=== PATIENT | male | born 1965 | race Two or more races ===

== ENCOUNTER 2020-04-09 19:21 | Inpatient (IN) | payer MEDICARE, OTHER ==
[~2020-04-09] VITALS: Ht 188 cm; Wt 73.5 kg
[2020-04-09] MEDS ORDERED: Acetaminophen 500mg (ES) tab ORAL PRN (22:15)
--- NOTE | 2020-04-09 22:40 | NUR ---
NURSE NOTES: Patient arrived at unit around 1040 pm. via ambulance gurney. Patient is covid positive, and was tested back at [facility]. Patieint is alert and oriented x4,denies any SOB or current s/s of covid. per patient, he had a cough prior to and was tested. Patient is ambulatory with steady gait. denies any pain as of now. VSS and WNL. afebrile. Admitting orders obtained from DR Farmer. patient has a RU chest permacath used for hemodialysis. last hemodialysis was done today at 2130 04/09/20. Per patient he is only getting dialysis qMonday and Sunday. Otherwise, patient stable
[2020-04-09 22:45] VITALS: BP 110/64
--- NOTE | 2020-04-09 22:45 | NUR ---
NURSE NOTES: Patient reported to have taken already night medications prior to leaving
[2020-04-09 23:21] LABS: BASOPHILS % (AUTO) 0.7 % (0.0-2.0); EOSINOPHILS % (AUTO) 9.9 % (0.0-3.0); HEMOGLOBIN 10.8 G/DL (14.2-18.0); LYMPHOCYTES % (AUTO) 13.3 % (20.0-45.0); MEAN CORPUSCULAR VOLUME 88 FL (80-99); MONOCYTES % (AUTO) 11.4 % (1.0-10.0); NEUTROPHILS % (AUTO) 64.8 % (45.0-75.0); PLATELET COUNT 165 K/UL (150-450); RED BLOOD COUNT 3.85 M/UL (4.70-6.10); RED CELL DISTRIBUTION WIDTH 13.4 % (11.6-14.8); WHITE BLOOD COUNT 6.7 K/UL (4.8-10.8)
[2020-04-09 23:30] LABS: ALANINE AMINOTRANSFERASE 34 U/L (12-78); ALBUMIN 3.3 G/DL (3.4-5.0); ALBUMIN/GLOBULIN RATIO 0.7 (1.0-2.7); ALKALINE PHOSPHATASE 96 U/L (46-116); ANION GAP 9 mmol/L (5-15); ASPARTATE AMINO TRANSFERASE 26 U/L (15-37); BILIRUBIN,TOTAL 0.9 MG/DL (0.2-1.0); BLOOD UREA NITROGEN 76 mg/dL (7-18); CALCIUM 8.9 MG/DL (8.5-10.1); CARBON DIOXIDE 29 MMOL/L (21-32); CHLORIDE 104 MMOL/L (98-107); CREATININE 5.1 MG/DL (0.55-1.30); POTASSIUM 3.7 MMOL/L (3.5-5.1); SODIUM 142 MMOL/L (136-145)
[2020-04-09] MEDS: Atorvastatin 20mg tab ORAL SCH (23:30)
[2020-04-10] VITALS: BP 110/56
--- NOTE | 2020-04-10 | NUR ---
NURSE NOTES: MRSA, VRE, CRE swabs obtained . as per [facility] Protocol. IV site obtained on L hand, 24 gauge.
[2020-04-10 04:00] VITALS: BP 131/75
--- NOTE | 2020-04-10 07:45 | NUR ---
NURSE HAND-OFF: Important Events on Shift:[ADMISSION] Patient Status: [stable ] Diet: [reg] Pending Orders: [] Pending Results/Labs:[] Pending MD notification:[] Latest Vital Signs: Temperature 96.8 , Pulse 72 , B/P 131 /75 , Respiratory Rate 20 , O2 SAT 97 , , O2 Flow Rate . Vital Sign Comment: [] Latest Hernandes Fall Score: 35 Fall Risk: Medium Risk Safety Measures: Call light Within Reach, Bed Alarm , Side Rails Side Rails x2, Bed position Low and Locked. Fall Precautions: Patient Fall Education Report given to [CELESTINA REBOLLAR ].
--- NOTE | 2020-04-10 07:54 | NUR ---
NURSE NOTES: Received pt in bed, AAO x 4. RA. No c/o of pain/distress at this moment. IV on L hand 24g noted and R chest permacath noted. Side rails x2. Bed in the lowest and alarm on. Call light within reach. Will continue to monitor
[2020-04-10 08:00] VITALS: BP 106/68
--- NOTE | 2020-04-10 08:15 | History and Physical Report ---
DATE OF ADMISSION: 04/09/2020 CHIEF COMPLAINT: End-stage renal disease, shortness of breath. HISTORY OF PRESENT ILLNESS: This is a 54-year-old male. He has a history of heart transplant 13 years ago, was recently initiated on hemodialysis approximately two months ago. He recently tested positive for COVID-19 from halfway facility, was transferred to [facility]. Unfortunately, his old dialysis center would not take him back for hemodialysis because he was COVID positive and attempts [facility] were unsuccessful. The patient had worsening shortness of breath and edema. He is now admitted for hemodialysis. He denies any fevers or chills. He has had no cough. No chest pain. . No body aches. PAST MEDICAL HISTORY: As above. History of schizophrenia and hypertension. PAST SURGICAL HISTORY: As above. CURRENT MEDICATIONS: Reconciled and reviewed. ALLERGIES: None. FAMILY HISTORY: None. SOCIAL HISTORY: Negative for tobacco, ethanol, or drugs. REVIEW OF SYSTEMS: GENERAL: No fevers or chills. HEENT: No headaches or visual changes. CARDIOPULMONARY: No chest pain or . GASTROINTESTINAL: No nausea or vomiting. GENITOURINARY: No urgency or frequency. MUSCULOSKELETAL: No joint pain or swelling. NEUROLOGIC: No evidence of seizures. PHYSICAL EXAMINATION: VITAL SIGNS: Temperature 98, pulse 72, respirations 20, and blood pressure 131/75. GENERAL: The patient is well-developed, no apparent distress. HEART: Regular rate and rhythm. LUNGS: Clear. ABDOMEN: Soft, nontender, and nondistended. EXTREMITIES: Without clubbing, cyanosis, or edema. NEUROLOGIC: Motor strength is 5/5 bilaterally. SKIN: Without rashes. LABORATORY AND DIAGNOSTIC DATA: Labs showed a white count of 6, hemoglobin 10, hematocrit 34, platelets of 165. Sodium 142, creatinine was 5, BUN 76. ASSESSMENT: This is a pleasant 54-year-old male he has a history of heart transplant, hypertension, end-stage renal disease admitted for hemodialysis for renal failure, shortness of breath, and uremia. PLAN: Renal consultation for hemodialysis. Continue transplant medications. Cardiology followup regarding the patient's transplant medications. Continue psychiatric medications. Continue DVT and stress ulcer prophylaxis. Plan of care has been discussed with the patient's pattern scratcher and his non destructive evaluation manager. Sergio Farmer M.D. DR: Petra JOB#: [id number] CC:
[2020-04-10] MEDS ORDERED: Torsemide 10mg tab ORAL SCH (09:00)
[2020-04-10] MEDS: Imdur 30mg tab ORAL SCH (09:00)
[2020-04-10] MEDS ORDERED: Imdur 30mg tab ORAL SCH (09:00)
[2020-04-10] MEDS: Carvedilol 6.25mg Tab ORAL SCH ×2 (09:00→21:00)
[2020-04-10] MEDS ORDERED: Bumetanide 1mg tab ORAL SCH (09:00)
[2020-04-10] MEDS: Aspirin EC 81mg tab ORAL SCH (09:10)
--- NOTE | 2020-04-10 09:33 | Diagnostic Imaging Report ---
EXAM: XR Chest, 1 View CLINICAL HISTORY: COUGH TECHNIQUE: Frontal view of the chest. COMPARISON: No relevant prior studies available. FINDINGS/IMPRESSION: Dual lumen central venous catheter terminates in the distal superior cava and right atrium. Median sternotomy wires. Atelectasis within the right midlung field and left lung base. No pleural effusion or pneumothorax. The heart size is enlarged. Calcified aorta.
[2020-04-10] MEDS: Mycophenolate 250mg cap ORAL SCH ×2 (09:54→17:46)
--- NOTE | 2020-04-10 11:00 | Consultation ---
DATE OF CONSULTATION: 04/10/2020 NEPHROLOGY CONSULTATION CONSULTING PHYSICIAN: Compa Iraheta MD. REFERRING PHYSICIAN: Sergio Farmer MD. REASON FOR CONSULTATION: End-stage renal disease. HISTORY OF PRESENT ILLNESS: The patient had a heart transplant in 2006 and was started on dialysis a few months ago. He lives in a long term facility. Apparently not on this part of town but was recently transferred to a facility nearby due to a screening COVID-19 positive. He has been unable to get outpatient dialysis because of his recent move here and lack of data. He has had a mild cough. No shortness of breath. No chest pain. No leg edema. No fever or chills but because of his COVID-19 and inability to get dialysis, he was admitted. ALLERGIES: None known. PAST SURGICAL HISTORY: Heart transplant, AV fistula. HABITS: He is a nonsmoker and nondrinker. MEDICATIONS: Torsemide 100 mg b.i.d., lisinopril 10 mg daily, Protonix 40 mg daily., Senna b.i.d., , MOM p.r.n., Fleet enema p.r.n., Dulcolax suppository p.r.n., Prograf 2 mg one tablet b.i.d., aspirin 81 mg daily, Plavix 75 mg daily, prednisone 5 mg daily, PhosLo 667 mg t.i.d., Crestor 5 mg daily, carvedilol 3.125 mg b.i.d., hydralazine 25 mg three tablets every 8 hours, Imdur 60 mg daily, Zyprexa 5 mg daily. SYSTEM REVIEW: HEAD, EYES, EARS, NOSE, AND THROAT: Vision and hearing is good. ENDOCRINE: No diabetes or thyroid disease. PULMONARY: See history of present illness. There is not short of breath at this time. CARDIAC: History of heart transplant and hypertension. GASTROINTESTINAL: History of gastritis improved with medication. GENITOURINARY: No dysuria, hematuria. NEUROLOGIC: History of prior CVA with right-sided weakness, minimal residual. PHYSICAL EXAMINATION: GENERAL: The patient is alert, in no acute distress. VITAL SIGNS: BMI 21.1, temperature 97.9, pulse 104, respiratory rate 21, blood pressure 106/68. HEAD, EYES, EARS, NOSE, AND THROAT: Sclerae are nonicteric. Ocular motions intact in all directions. Oral mucosa moist. NECK: No adenopathy. LUNGS: Clear. HEART: Regular rhythm. No murmur. ABDOMEN: Soft without organomegaly. EXTREMITIES: No edema. There is an AV fistula. NEUROLOGIC: He is alert and responsive. He moves all extremities. Cranial nerves are intact. LABORATORY AND DIAGNOSTIC DATA: White count 6.7, hemoglobin 10.8, BUN 76, creatinine 5.1. Electrolytes normal. Glucose 109. Calcium 8.9. Chest x-ray, pending. IMPRESSION: 1. End-stage renal disease. 2. History of heart transplant. 3. History of COVID positive recent. 4. Inability get outpatient dialysis due to recent move to this area and lack of data. 5. History of cardiomyopathy and heart transplant. 6. History of schizophrenia. 7. History of prior CVA. PLAN: All orders reviewed for end-stage renal disease, dialysis is arranged. We will watch closely in view of his comorbidities. Compa Iraheta M.D. DR: Debora JOB#: [id number] CC:
[2020-04-10 12:00] VITALS: BP 118/73
[2020-04-10 16:00] VITALS: BP 119/79
[2020-04-10] MEDS ORDERED: CRESTOR10 M1 ORAL (16:32)
[2020-04-10] MEDS ORDERED: ISOSORBIDE MON120 M1 PO (16:32)
[2020-04-10] MEDS ORDERED: TORSEMIDE20 MG ORAL (16:32)
[2020-04-10] MEDS ORDERED: TACROLIMUS1 MG (16:45)
[2020-04-10] MEDS ORDERED: MYCOPHENOLATE250 MG PO (16:45)
[2020-04-10] MEDS ORDERED: TYLENOL325 MG ORAL (16:58)
[2020-04-10] MEDS ORDERED: ASPIRIN EC81 MG ORAL (16:58)
[2020-04-10] MEDS ORDERED: PREDNISONE5 M3 PO (16:58)
[2020-04-10] MEDS ORDERED: K-TAB10 MEQ PO (16:58)
[2020-04-10] MEDS ORDERED: PANTOPRAZOLE SO40 MG ORAL (16:58)
[2020-04-10] MEDS ORDERED: METOLAZONE5 MG PO (16:58)
[2020-04-10] MEDS ORDERED: CARVEDILOL6.25 MG ORAL (16:58)
--- NOTE | 2020-04-10 19:20 | NUR ---
NURSE NOTES: Received report from denisa ugalde. patient is currently getting dialysis with donya (dialysis nurse). patient is alert and oriented. verbally responsive. on room air. no sob. with iv line on the left hand, saline lock. with dialysis site on the right upper chest permacath. uses urinal. reiterated to call and ask for assistance. per aftab" covid + from the [facility]. observed isolation precautions. bed locked and in lowest position. call light and light button within easy reach. will continue plan of care.
--- NOTE | 2020-04-10 19:34 | NUR ---
NURSE HAND-OFF: Important Events on Shift: dialysis Patient Status: FC, stable, getting dialyzed Diet: Renal Pending Orders: 2D echo Pending Results/Labs: n/a Pending MD notification: n/a Latest Vital Signs: Temperature 97.9 , Pulse 94 , B/P 119 /79 , Respiratory Rate 17 , O2 SAT 98 , Room Air, O2 Flow Rate . Vital Sign Comment: Latest Hernandes Fall Score: 35 Fall Risk: Medium Risk Safety Measures: Call light Within Reach, Bed Alarm Zone 1, Side Rails Side Rails x2, Bed position Low and Locked. Fall Precautions: Yellow Socks Yellow Gown Door Sign Patient Fall Education Report given to SMOOTH Yanez.
[2020-04-10 20:00] VITALS: BP 102/70
--- NOTE | 2020-04-10 21:00 | NUR ---
NURSE NOTES: patient complaints of cough and requested to have cough medicine. "i have a itchy throat". md krishna is aware, awaiting for call back.
[2020-04-10] MEDS: Atorvastatin 20mg tab ORAL SCH (21:14)
--- NOTE | 2020-04-10 21:20 | NUR ---
NURSE NOTES: dialysis done. per SMOOTH naqvi " 1.2 L out". dialysis access site dry and intact. denies any pain or discomfort. vitals of 102/70 ,98 bpm, 19 cpm, 98%, 97.8F.
[2020-04-10] MEDS ORDERED: Heparin Sod 1000 units/ml 10ml IV PRN (22:45)
[2020-04-11] VITALS: BP 122/68
--- NOTE | 2020-04-11 00:14 | NUR ---
NURSE NOTES: received an order of jerrell vee prn for cough from dr. krishna. order noted and carried out. Addendum: 04/11/20 at 0016 by Hien Morillo RN went to the room. patient asleep at the moment. will offer cough medicine when he wakes up.
[2020-04-11] MEDS ORDERED: guaiFENesin /DM 10ml syrup ORAL PRN (00:15)
[2020-04-11 04:00] VITALS: BP 103/59
--- NOTE | 2020-04-11 07:23 | NUR ---
NURSE HAND-OFF: Important Events on Shift: dialysis patient Patient Status: stable Diet:renal diet Pending Orders: 2decho Pending Results/Labs: Pending MD notification: Latest Vital Signs: Temperature 97.6 , Pulse 80 , B/P 103 /59 , Respiratory Rate 20 , O2 SAT 95 , Room Air, O2 Flow Rate . Vital Sign Comment: Latest Hernandes Fall Score: 35 Fall Risk: Medium Risk Safety Measures: Call light Within Reach, Bed Alarm Zone 1, Side Rails Side Rails x2, Bed position Low and Locked. Fall Precautions: Yellow Socks Yellow Gown Door Sign Patient Fall Education Report given to denisa chery.
--- NOTE | 2020-04-11 07:34 | NUR ---
NURSE NOTES: pt is in the bed alert and awake. respiration is even and unlabored. denies any pain and discomfort at this time. no acute distress noted. call light is within reach.
[2020-04-11 08:00] VITALS: BP 91/57
[2020-04-11] MEDS: Imdur 30mg tab ORAL SCH (08:59)
[2020-04-11] MEDS: Carvedilol 6.25mg Tab ORAL SCH (08:59)
[2020-04-11] MEDS: Mycophenolate 250mg cap ORAL SCH (09:00)
[2020-04-11] MEDS: Aspirin EC 81mg tab ORAL SCH (09:00)
--- NOTE | 2020-04-11 10:06 | Nephrology Progress Note ---
Assessment/Plan Problem List: (1) Heart transplant recipient (2) COVID-19 in immunocompromised patient (3) ESRD on hemodialysis Plan stable on dialysis. He states no longer taking mycophenalate to d/c Subjective Constitutional: Reports: no symptoms HEENT: Reports: no symptoms Genitourinary: Reports: no symptoms Neurologic/Psychiatric: Reports: no symptoms Objective Objective Last 24 Hour Vital Signs Date Time Temp Pulse Resp B/P (MAP) Pulse Ox O2 Delivery O2 Flow Rate FiO2 04/11/20 08:59 103 91/57 04/11/20 08:59 91/57 04/11/20 08:00 97.6 103 20 91/57 (68) 96 04/11/20 04:00 97.6 80 20 103/59 (74) 95 04/11/20 00:00 97.4 83 20 122/68 (86) 96 04/10/20 21:00 Room Air 04/10/20 21:00 90 102/60 04/10/20 20:00 98.1 90 20 102/70 (81) 97 04/10/20 16:00 97.9 94 17 119/79 (92) 98 04/10/20 12:00 98.1 97 18 118/73 (88) 98 Intake and Output 04/10/20 04/11/20 19:00 07:00 Output Total 1200 ml Balance -1200 ml Output Hemodialysis UF 1200 ml Height (Feet): 6 Height (Inches): 2.00 Weight (Pounds): 162 General Appearance: no apparent distress, alert EENT: normal ENT inspection Neck: normal alignment Cardiovascular: normal rate Respiratory/Chest: lungs clear Abdomen: non tender Extremities: no edema Neurologic: customer account coordinator II-XII grossly normal Compa Iraheta MD Apr 11, 2020 10:06
[2020-04-11 12:00] VITALS: BP 98/63
--- NOTE | 2020-04-11 13:01 | NUR ---
CASE MANAGEMENT: INITIAL REVIEW 54YR OLD MALE BIBA FROM [facility] CC:SOB . EDEMA; D/T COVID + UNABLE TO RECEIVE HD SI:COVID-19 + . ESRD . FLUID OVERLOAD 97.6 76 18 110/64 99% ON RA BUN/CREAT 76/5.1 BG 109 ALB 3.3 H/H 10.8/34.0 IS:PREDNISONE PO QD ASPIRIN PO QD \: 3E MED SURG UNIT DCP: HOME WHEN STABLE PLAN: HD IN AM
--- NOTE | 2020-04-11 13:20 | NUR ---
DISCHARGE PLANNING PATIENT REFERRED BACK TO [facility] T: [phone] F: [phone]
--- NOTE | 2020-04-11 14:44 | NUR ---
DISCHARGE PLANNED PATIENT ACCEPTED BACK TO [facility] T: [phone] F: [phone] ROOM# 4A SKILLED [facility] PRODUCT CONSULTANT TIME 445PM
[2020-04-11 16:00] VITALS: BP 101/70
--- NOTE | 2020-04-11 18:40 | NUR ---
NURSE NOTES: Patient is discharged to [facility] without any signs of distress. Patient is awake. A&O x 4. Respiration is even and unlabored on room air. Denies any pain and discomfort at this time. skin is intact. Right upper chest wall Perma cath inplace and intact; no bleeding, tenderness and warmth noted. IV site and wrist band removed. Patient is placed in a gurney, transported via [facility] accompanied by 2 ALTERATIONS SUPERVISOR.
--- NOTE | 2020-04-12 02:00 | Discharge Summary ---
DATE OF ADMISSION: 04/09/2020 DATE OF DISCHARGE: 04/11/2020 ADMISSION DIAGNOSES: 1. End-stage renal disease. 2. Missed hemodialysis. 3. CHF. 4. History of heart transplant. 5. Hypertension. 6. History of schizophrenia. DISCHARGE DIAGNOSES: 1. End-stage renal disease. 2. Missed hemodialysis. 3. CHF. 4. History of heart transplant. 5. Hypertension. 6. History of schizophrenia. HOSPITAL COURSE: Patient was admitted with complaints of CHF and azotemia because of missed dialysis sessions. He was admitted. He did receive hemodialysis. He was continued on all his regular cardiac medicines including his transfer medications. On discharge, he was stable. Transportation to hemodialysis had been arranged at the senior care facility. The patient will be discharged and follow up in one to two days. He will continue hemodialysis at his regular dialysis center tomorrow. DISCHARGE MEDICATIONS: Please see discharge medications list for discharge medications. DIET: Cardiac renal diet. ACTIVITIES: Ad-brandy. Sergio Farmer M.D. DR: WILMAR JOB#: [id number] CC:
[2020-04-12] MEDS ORDERED: Heparin Sod 1000 units/ml 10ml IV ONE (10:15)
== END 2020-04-11 18:42 | DRG 682 ==
LOC: 4E 22:05
PROC: 5A1D70Z Performance of Urinary Filtration, Intermittent, Less than 6 Hours Per Day (ICD-10-PCS; principal; 2020-04-10)
DX: I12.0 Hypertensive chronic kidney disease with stage 5 chronic kidney disease or end stage renal disease (principal); N18.6 End stage renal disease; U07.1 COVID-19; Z94.1 Heart transplant status; Z91.15 Patient's noncompliance with renal dialysis; Z99.2 Dependence on renal dialysis; F20.9 Schizophrenia, unspecified; Z86.73 Personal history of transient ischemic attack (TIA), and cerebral infarction without residual deficits
CPT/HCPCS: 36415; 71045; 80053; 85025; 86703; 86803; 87081; 87340; 87517; 93306; U0002